=== PATIENT | female | born 1935 | race Caucasian/White ===

== ENCOUNTER 2016-09-17 09:51 | Inpatient (IN) | payer OTHER, BC ==
[~2016-09-17] VITALS: Ht 170.2 cm; Wt 83.9 kg
--- NOTE | ~2016-09-17 | D ---
[facility] [place] [address] DISCHARGE SUMMARY Name: KEYSHAWN FONTANA Room #: 418-P ADM IN M.R.#: [id number] Admission: 09/17/16 Attend Phys: David Bowie MD Discharge: Date of : 35 Report #: [id number] THIS REPORT FOR: //name// CC: Nhi Bowie DATE OF SERVICE: 09/21/2016 HISTORY OF PRESENT ILLNESS: The patient is an 81-year-old female who fell at home, and fracture of the left femoral neck. Please refer to the admission H and P for details. HOSPITALIZATION COURSE: The patient was hospitalized at [facility]. Orthopedic surgeon was consulted. The patient had surgery on 09/18/2016. The patient recovered well. Her postop course was uncomplicated. The patient had mild hypoglycemic episode while she was here. Amaryl dose was reduced to 2 mg in the morning, from 4 mg b.i.d. The patient's hospital stay was otherwise uneventful. The patient was seen and evaluated by physical therapist. nursing home home placement was recommended for the rehabilitation. The patient's condition currently is acceptable, as documented in the patient's chart. DISCHARGE DIAGNOSES: Left neck fracture, status post surgery on 09/18/2016. 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 DISCHARGE MEDICATIONS: Please refer to the medication reconciliation list. In brief, the patient is continued on outpatient medications, except the glimepiride dose is reduced to 2 mg in the morning, from 4 mg b.i.d. The patient is also continued on Allgood, that was started here for pain control. FOLLOWUP PLAN: 1. Follow up with the primary care physician in 1-2 weeks. 2. Follow up in orthopedic clinic in 2 weeks as advised[address] [address] DISCHARGE SUMMARY Name: KEYSHAWN FONTANA Room #: 418-P [facility] IN ..#: [id number] Admission: 09/17/16 Attend Phys: David Bowie MD Discharge: Date of : 35 Report #: [id number] I spent more than 30 minutes to coordinate the patient's discharge from the hospital. By: [id number] Teena Camp MD /nt
--- NOTE | ~2016-09-17 | HC ---
[facility] [place] [address] CONSULTATION Name: KEYSHAWN FONTANA Room #: 418-P ADM IN M.R.#: [id number] Admission: 09/17/16 Attend Phys: David Bowie MD Discharge: Date of : 35 Report #: [id number] THIS REPORT FOR: //name// CC: Nhi Bowie DICTATED BY: Fabrice PIERCE Currently, the patient is in room 418. REASON FOR CONSULT: Left hip fracture. The patient was seen by myself this afternoon. HISTORY OF PRESENT ILLNESS: The patient is an 81-year-old white female, who was brought to the emergency room by her daughter, who lives with her. The patient fell this morning in the back yard of her house while she was doing some gardening. In speaking with the patient, it sounds like she tumbled on a chair and was not able to regain her balance prior to falling. She denies syncope episode. Denies trauma to her head. The patient remembers a detailed falling and landing on her left side. Subsequently, the patient had pain and was unable to bear weight. The patient came into the emergency room rating pain 10/10. The patient had family at bedside when assessed. She was alert and oriented and was able to answer all my questions. The patient is a very independent 81-year-old who uses a cane to get around the house. ALLERGIES: No known allergies to medications. MEDICATIONS: Please see MAR. PERTINENT LABS: White blood cell 405, hemoglobin 12.6, platelet count of 314, PT 10.7, INR 1.0. Creatinine 1.6, BUN 33. PAST MEDICAL HISTORY: Include hyperlipidemia, diabetes type 2, hypothyroidism, hypertension, uterine cancer in 1998, skin cancer, kidney stones, cardiac stents placed in 2005, small bowel obstruction in 2013, mild CVA with no residual in 2012. SOCIAL HISTORY: The patient denies alcohol abuse, denies recreational drug abuse. Lives at home with her daughter. PERTINENT IMAGING: X-ray of the hip obtained in the emergency room, no acute fracture was seen or subluxation. A CT was then ordered for the hip, which revealed left subcapital femoral neck fracture with some mild anterior offset and triangulation of distal fracture. PHYSICAL EXAMINATION: Showed that she had equal leg length. Pain with leg roll of the left side only. Neurovascular intact in left lower extremity with +[address] [address] CONSULTATION Name: KEYSHAWN FONTANA Room #: 418-P [facility] IN [facility]#: [id number] Admission: 09/17/16 Attend Phys: David Bowie MD Discharge: Date of : 35 Report #: [id number] dorsal pedis and +2 posterior tibialis. No pain to palpation of the knee. No pain to palpation of the ankle. The skin was dry and intact. No ecchymosis noted. No range of motion of hip was assessed due to the fracture. She was tender to mild palpation of the hip anteriorly and lateral. Sensation was intact. IMPRESSION: Left femoral neck fracture. PLAN: The patient will be placed n.p.o. after midnight and the anticoagulant medication will be held. Consent is to be obtained tonight. Preop antibiotics were ordered Ancef 1 g. The left hip pinning is planned for tomorrow afternoon at [address] Tirso Bennett and assisted by me. Thank you for the consult. Please call us if you have questions. By: [id number] Teena Camp MD /nt
--- NOTE | ~2016-09-17 | EKG ---
[address] [address] ELECTROCARDIOGRAM REPORT Name: KEYSHAWN FONTANA Room #: 170-16 ADM IN .R.#: [id number] Admission: 09/17/16 Attend Phys: David Bowie MD Discharge: Date of : 35 Report #: [id number] THIS REPORT FOR: //name// [facility] ED Test Date: 2016-09-17 Test Time: 10:32:46 Pat Name: KEYSHAWN FONTANA Department: Room: [facility] Gender: F Web Design Instructor: adis : 1935 Requested By: Kvng Singleton Order Number: [id number] MD: Taz Singh Measurements Intervals [place] Rate: 89 P: -60 LA: 185 QRS: -59 QRSD: 144 T: 99 QT: 425 QTc: 518 Interpretive Statements Sinus rhythm Ventricular trigeminy RBBB and LAFB Electronically Signed On 09-17-2016 15:08:50 CDT by Taz Singh [email or web address] <ELECTRONICALLY SIGNED> By: Taz Singh MD 09/17/16 1508 31 103 Taz Singh MD /RICHAR
--- NOTE | ~2016-09-17 | O ---
[facility] [place] [address] OPERATIVE REPORT Name: MARIZOLKEYSHAWN C Room #: 418-P ADM IN M.R.#: [id number] Admission: 09/17/16 Attend Phys: David Bowie MD Discharge: Date of : 35 Report #: [id number] THIS REPORT FOR: //name// CC: Nhi Bowie DATE OF SERVICE: 09/18/2016 PREOPERATIVE DIAGNOSIS: Left hip femoral neck fracture. POSTOPERATIVE DIAGNOSIS: Left hip femoral neck fracture. PROCEDURE: Left hip pinning. SURGEON: Tirso Bennett MD. CIRCULATION MANAGER: Law Godoy, nurse practitioner. INDICATIONS FOR CIRCULATION MANAGER: During the course of operation, manipulation, retraction and limb positioning was required. This was afforded to me by my automotive parts counter assistant. ANESTHESIA: General. INDICATIONS: See hospital H and P. DESCRIPTION OF PROCEDURE: After adequate general anesthesia had been obtained, the patient was transferred on the fracture table. Left hip and lower extremity was prepped and draped in the usual meticulous sterile fashion. A small incision was made just distal to the greater trochanter laterally and subQ divided sharply. Hemostasis obtained with electrocautery. IT band was divided. The vastus lateralis was split longitudinally. Then, 3 guide pins were then placed through the drill guide, pinned to the femoral head from the lateral cortex. These were checked in 2 planes and found to be in good position. We then drilled the lateral cortex, measured and then placed 3 cannulated 7.3 mm screws over the guide pins. These were checked in 2 planes and found to be in good position. The wound was irrigated copiously. The fascia was reapproximated with a #1 Vicryl suture, subcutaneous closed with 2-0 Monocryl, skin closed with stacey. Sterile compressive dressing was applied. By: [id number] Tirso Bennett MD /nt
[~2016-09-17 09:51] MED LIST: AMARYL2 MG PO; BAYER CHEWABLE81 MG PO; CENTRUM SILVER1 EAC4 PO; COLACE100 MG PO; CRESTOR20 MG PO; GLUCOPHAGE1000 MG PO; HYDROCHLOROTHIA25 M2 PO; LAMISIL250 MG PO; LEVOTHYROXIN0.088 MG PO; METFORMIN HCL500 MG PO; METOPROLOL PO; NORCO 5-325 TA1 EACH PO; NORVASC10 MG PO; POTASSIUM20 PO; SENNA PO; TYLENOL325 MG PO
[2016-09-17 09:55] VITALS: BP 181/61
[2016-09-17 10:57] LABS: ABSOLUTE NEUTROPHILS 6.3 thou/uL (1.4-8.2); BASOPHILS 1.1 % (0.0-2.0); EOSINOPHILS 2.4 % (0.0-3.0); HEMATOCRIT 37.2 % (37.0-47.0); HEMOGLOBIN 12.6 gm/dL (12.0-15.0); LYMPHOCYTES 11.7 % (24.0-44.0); MCHC 33.8 g/dL (28.0-37.0); MCV 91.8 fL (80.0-100.0); MONOCYTES 4.2 % (1.0-8.0); PLATELET COUNT 314 thou/uL (150-400); POLYS 80.6 % (36.0-66.0); RBC 4.05 mil/uL (4.20-5.00); RDW 14.2 % (10.5-14.5); WBC 7.8 thou/uL (4.0-11.0)
[2016-09-17 10:58] LABS: MANUAL DIFF NO
[2016-09-17 11:04] LABS: CALCIUM 9.7 mg/dL (8.5-10.1); CREATININE 1.6 mg/dL (0.6-1.0); POTASSIUM 3.9 mmol/L (3.5-5.1)
[2016-09-17] MEDS ORDERED: GLUCOPHAGE XR500 M1 PO (11:47)
[2016-09-17] MEDS ORDERED: JANUVIA100 MG PO (11:48)
[2016-09-17] MEDS ORDERED: LIPITOR80 MG PO (11:49)
[2016-09-17] MEDS ORDERED: KLOR-CON 10 ER10 MEQ PO (11:50)
[2016-09-17] MEDS ORDERED: TOPROL XL25 MG PO (11:50)
[2016-09-17] MEDS ORDERED: TRAMADOL 50 MG50 MG PO (11:51)
[2016-09-17 15:00] VITALS: BP 162/53
[2016-09-17 15:41] VITALS: BP 158/67
[2016-09-17 20:26] LABS: PROTIME 10.7 Seconds (9.3-11.4)
[2016-09-17 20:37] VITALS: BP 166/53
[2016-09-18] VITALS (9 sets, daily range): BP systolic 111–191; BP diastolic 39–73
[2016-09-18 08:40] LABS: URINE BILIRUBIN NEGATIVE (Negative); URINE BLOOD 2+ (Negative); URINE COLOR YELLOW; URINE GLUCOSE-RANDOM* NEGATIVE (Negative); URINE KETONES NEGATIVE (Negative); URINE NITRITE NEGATIVE (Negative); URINE PROTEIN (DIPSTICK) 2+ (Negative); URINE SPECIFIC GRAVITY 1.025 (1.003-1.035); URINE UROBILINOGEN 0.2 E.U./dl (0.2-1.0)
[2016-09-18 08:46] LABS: HEMATOCRIT 34.1 % (37.0-47.0); HEMOGLOBIN 11.6 gm/dL (12.0-15.0); MCH 31.7 pg (26.0-34.0); MCV 93.1 fL (80.0-100.0); RBC 3.66 mil/uL (4.20-5.00); RDW 14.5 % (10.5-14.5); WBC 10.9 thou/uL (4.0-11.0)
[2016-09-18 08:54] LABS: CALCIUM 8.5 mg/dL (8.5-10.1); CREATININE 1.2 mg/dL (0.6-1.0); POTASSIUM 3.8 mmol/L (3.5-5.1)
[2016-09-18 08:54] LABS: CASTS None Seen /LPF (None Seen); CRYSTALS None Seen /LPF (None Seen); SQUAMOUS None Seen /LPF (0-3); URINE RBC 3-10 Few /HPF (0-2)
[2016-09-18 08:55] LABS: BACTERIA 1-9 Few /HPF (None Seen)
[2016-09-18 18:59] LABS: HEMOGLOBIN 10.2 gm/dL (12.0-15.0); MCH 31.6 pg (26.0-34.0); MCHC 34.1 g/dL (28.0-37.0); MCV 92.7 fL (80.0-100.0); RBC 3.24 mil/uL (4.20-5.00); RDW 14.6 % (10.5-14.5); WBC 11.7 thou/uL (4.0-11.0)
[2016-09-19 00:04] VITALS: BP 138/48
[2016-09-19 04:15] VITALS: BP 139/39
[2016-09-19 05:56] LABS: HEMATOCRIT 29.8 % (37.0-47.0); HEMOGLOBIN 10.4 gm/dL (12.0-15.0); MCHC 34.9 g/dL (28.0-37.0); MCV 91.8 fL (80.0-100.0); RBC 3.25 mil/uL (4.20-5.00); RDW 14.6 % (10.5-14.5); WBC 9.6 thou/uL (4.0-11.0)
[2016-09-19 06:02] LABS: CALCIUM 8.1 mg/dL (8.5-10.1); CREATININE 1.4 mg/dL (0.6-1.0); POTASSIUM 3.7 mmol/L (3.5-5.1)
[2016-09-19 07:03] VITALS: BP 167/42
[2016-09-19 15:27] VITALS: BP 162/57
[2016-09-19 20:00] VITALS: BP 177/47
[2016-09-19 20:35] LABS: URINE BILIRUBIN NEGATIVE (Negative); URINE BLOOD 2+ (Negative); URINE COLOR YELLOW; URINE GLUCOSE-RANDOM* 1+ (Negative); URINE KETONES NEGATIVE (Negative); URINE LEUKOCYTES-REFLEX 1+ (Negative); URINE PROTEIN (DIPSTICK) 2+ (Negative); URINE SPECIFIC GRAVITY 1.025 (1.003-1.035); URINE UROBILINOGEN 0.2 E.U./dl (0.2-1.0)
[2016-09-19 20:45] LABS: COARSE GRANULAR CASTS 4-10 Moderate /LPF (None Seen); SQUAMOUS 0-3 Few /LPF (0-3); URINE RBC >20 Many /HPF (0-2); URINE WBC-REFLEX >25 Many /HPF (0-5)
[2016-09-19 20:48] LABS: AMORPHOUS URATES Moderate /LPF (None Seen)
[2016-09-20] VITALS: BP 160/48
[2016-09-20 04:00] VITALS: BP 160/33
[2016-09-20 06:07] LABS: ABSOLUTE NEUTROPHILS 5.5 thou/uL (1.4-8.2); EOSINOPHILS 4.8 % (0.0-3.0); HEMATOCRIT 28.3 % (37.0-47.0); HEMOGLOBIN 9.7 gm/dL (12.0-15.0); LYMPHOCYTES 12.3 % (24.0-44.0); MCH 31.7 pg (26.0-34.0); MCHC 34.4 g/dL (28.0-37.0); MONOCYTES 5.1 % (1.0-8.0); PLATELET COUNT 230 thou/uL (150-400); POLYS 76.8 % (36.0-66.0); RBC 3.08 mil/uL (4.20-5.00); RDW 14.6 % (10.5-14.5); WBC 7.1 thou/uL (4.0-11.0)
[2016-09-20 06:11] LABS: MANUAL DIFF NO
[2016-09-20 06:18] LABS: CALCIUM 8.2 mg/dL (8.5-10.1); CREATININE 1.4 mg/dL (0.6-1.0); POTASSIUM 3.7 mmol/L (3.5-5.1)
[2016-09-20 07:13] VITALS: BP 151/43
[2016-09-20 15:49] VITALS: BP 162/52
[2016-09-20 20:00] VITALS: BP 172/57
[2016-09-21 04:55] VITALS: BP 141/51
[2016-09-21 08:37] VITALS: BP 158/44
[2016-09-21] MEDS ORDERED: HUMALOG100 UNIT/1 SUBQ (09:30)
[2016-09-21] MEDS ORDERED: CYCLOBENZAPRINE5 MG PO (09:30)
[2016-09-21] MEDS ORDERED: XARELTO10 MG PO (09:30)
[2016-09-21] MEDS ORDERED: HYDROCODONE-AP1 EAC6 PO (09:30)
[2016-09-21] MEDS ORDERED: TRAMADOL 50 MG50 MG PO (09:30)
[2016-09-21] MEDS ORDERED: AMARYL2 MG PO (09:30)
== END 2016-09-21 13:00 | DRG 480 ==
LOC: ER 09:51 → EROBS 13:42 → 4E 13:42
PROVIDERS: Family Medicine; Internal Medicine Endocrinology, Diabetes & Metabolism; Nurse Practitioner; Orthopaedic Surgery
PROC: 0QH734Z Insertion of Internal Fixation Device into Left Upper Femur, Percutaneous Approach (ICD-10-PCS; principal; 2016-09-18)
DX: S72.012A Unspecified intracapsular fracture of left femur, initial encounter for closed fracture (principal); J96.00 Acute respiratory failure, unspecified whether with hypoxia or hypercapnia; N17.9 Acute kidney failure, unspecified; K59.00 Constipation, unspecified; D64.9 Anemia, unspecified; E11.649 Type 2 diabetes mellitus with hypoglycemia without coma; E11.65 Type 2 diabetes mellitus with hyperglycemia; E11.22 Type 2 diabetes mellitus with diabetic chronic kidney disease; I12.9 Hypertensive chronic kidney disease with stage 1 through stage 4 chronic kidney disease, or unspecified chronic kidney disease; N18.3 Chronic kidney disease, stage 3 (moderate); I25.10 Atherosclerotic heart disease of native coronary artery without angina pectoris; E78.5 Hyperlipidemia, unspecified; E03.9 Hypothyroidism, unspecified; Z85.42 Personal history of malignant neoplasm of other parts of uterus; Z85.528 Personal history of other malignant neoplasm of kidney; Z87.442 Personal history of urinary calculi; Z95.5 Presence of coronary angioplasty implant and graft; Z86.73 Personal history of transient ischemic attack (TIA), and cerebral infarction without residual deficits; Z90.710 Acquired absence of both cervix and uterus; Z92.3 Personal history of irradiation; Z79.82 Long term (current) use of aspirin; Z79.899 Other long term (current) drug therapy; W18.39XA Other fall on same level, initial encounter; Y93.89 Activity, other specified; Y92.098 Other place in other non-institutional residence as the place of occurrence of the external cause; Y99.8 Other external cause status
CPT/HCPCS: 10183; 50010; 50101; 50386; 51412; 51538; 53400; 53404; 56525; 57092; 62110; 62900; 70005

== ENCOUNTER 2016-10-08 19:15 | Inpatient (IN) | payer OTHER, BC ==
[~2016-10-08] VITALS: Ht 170.2 cm; Wt 83.9 kg
--- NOTE | ~2016-10-08 | EKG ---
[place] [address] [facility] [facility] [place] [address] ELECTROCARDIOGRAM REPORT Name: KEYSHAWN FONTANA Room #: 423-1 ADM IN M.R.#: [id number] Admission: 10/08/16 Attend Phys: Sulma Manzanares Discharge: Date of : 35 Report #: [id number] THIS REPORT FOR: //name// [facility] ED Test Date: 2016-10-08 Test Time: 20:24:39 Pat Name: KEYSHAWN FONTANA Department: [facility] Gender: F Dredge Pipeman: BRODY : 1935 Requested By: Roebrto Arreguin Order Number: [id number] MD: Damon Salomon Measurements Intervals [place] Rate: 102 P: 246 SD: 163 QRS: -63 QRSD: 137 T: 103 QT: 369 QTc: 481 Interpretive Statements Sinus tachycardia RBBB and LAFB Compared to ECG 09/17/2016 10:32:46 Ventricular premature complex(es) no longer present Electronically Signed On 10-09-2016 8:53:00 CDT by Damon Salomon [email or web address] <ELECTRONICALLY SIGNED> By: Damon Salomon MD, [facility] 10/09/16 0853 23 23 Damon Salomon MD, [facility] /EPI
--- NOTE | ~2016-10-08 | EKG ---
[place] [address] [address] [place] [address] ELECTROCARDIOGRAM REPORT Name: KEYSHAWN FONTANA Room #: 423-1 ADM IN M.R.#: [id number] Admission: 10/08/16 Attend Phys: Sulma Manzanares Discharge: Date of : 35 Report #: [id number] THIS REPORT FOR: //name// [facility] Test Date: 2016-10-09 Test Time: 08:33:41 Pat Name: KEYSHAWN FONTANA Department: Room: [facility] Gender: F Health Inspector: alisa : 1935 Requested By: Sulma Manzanares Order Number: [id number] MD: Damon Salomon Measurements Intervals [place] Rate: 133 P: [place]: QRS: -77 QRSD: 150 T: 103 QT: 359 QTc: 535 Interpretive Statements Atrial fibrillation RBBB and LAFB Compared to ECG 09/17/2016 10:32:46 Atrial fibrillation has replaced sinus tachycardia Electronically Signed On 10-09-2016 9:04:24 CDT by Damon Salomon [email or web address] <ELECTRONICALLY SIGNED> By: Damon Salomon MD, [facility] 06/10/21 903 2 2 Damon Salomon MD, [facility] /EPI
--- NOTE | ~2016-10-08 | HC ---
[facility] [place] [address] CONSULTATION Name: KEYSHAWN FONTANA Room #: 247-P [facility] IN .R.#: [id number] Admission: 10/08/16 Attend Phys: Sulma Manzanares Discharge: 10/10/16 Date of : 35 Report #: [id number] THIS REPORT FOR: //name// CC: Sulma Elise DATE OF SERVICE: 10/10/2016 DATE OF SERVICE: 10/10/2016. PERSONAL PHYSICIAN: Dr. Manzanares. CHIEF COMPLAINT: Left heel deep tissue injury. HISTORY OF PRESENT ILLNESS: This is an 81-year-old white female who was evaluated for the wound care nurses yesterday and found to have a deep tissue injury in her left heel, which is the same extremity that had she had a left hip surgery 3 weeks ago. It appears that the patient came in with be a deep tissue injury to her left heel and was also noted to have a small stage I decubitus ulcer in her sacrococcygeal region. I have been asked to assist in the care of this at this time, the patient herself appears to be have altered mental status exam, was unable answer any questions or give any history. She is only moaning with movement of her legs. PAST MEDICAL HISTORY: Significant for type 2 diabetes, hyperlipidemia, hypothyroidism, hypertension, uterine cancer, hysterectomy and radiation, coronary artery disease with stent placement in 2005. CURRENT MEDICATIONS: Multiple, I reviewed the patient's medication list. DRUG ALLERGIES: None. SOCIAL HISTORY: The patient recently was in a rehabilitation facility per old records. REVIEW OF SYSTEMS: Unobtainable because of the patient obtunded state, because of patient's altered mental status. PHYSICAL EXAMINATION: VITAL SIGNS: T-max 36.6, rest of the vital signs stable. GENERAL: This is a moaning, white female who will open her eyes on command, but does not answer any questions. HEENT: Normocephalic, atraumatic. Mucous membranes are dry. Pupils are round. Sclerae white. NECK: Without JVD or masses. BACK: Nontender. [facility] [address] [place] [address] CONSULTATION Name: KEYSHAWN FONTANA Room #: 247-P [facility] IN M.R.#: [id number] Admission: 10/08/16 Attend Phys: Sulma Manzanares Discharge: 10/10/16 Date of : 35 Report #: [id number] LUNGS: Slightly diminished breath sounds heard throughout. CHEST: Nontender. HEART: Regular with 2/6 systolic ejection murmur. ABDOMEN: Soft, obese, nontender, without open ulcerations. EXTREMITIES: Left hip has surgical stacey in place which appears to be a clean, dry and Left heel which has no actual drainage at this time, there is no odor but does appear to be tender because patient moans when I apply pressure to the heel. There are no signs of any cellulitis, there is no increased warmth. Distal pulses are 2+ dorsalis pedis, 1+ posterior tibial, rest of the foot is intact right lower extremity reveals no signs of ulcerations. There is no tenderness noted at the heel, there was no bogginess to the right heel. The rest of the foot or toes are intact. NEUROLOGIC: The patient once again only moans of pain but will open her eyes, when I asked her name, but does not answer any questions. LABORATORY DATA: White cell count 9.7, hemoglobin 9.4, albumin is , markedly low at 1.8. IMPRESSION: 1. Left heel deep tissue injury, present on admission. 2. Stage I decubitus ulcer, left or sacrococcygeal region. 3. Severe protein calorie malnutrition with albumin 1.8. 4. Recent left hip surgery. 5. Altered mental status. PLAN: At this time, we will start Betadine to the left heel, cover this with a foam and have heel protection on it at all times. We will order for the right lower extremity as well given the fact the patient appears to be fairly immobile. We will order a low air loss mattress, also to prevent any further breakdown of the sacrococcygeal ulcer; however, given her significant immobility and severe protein calorie malnutrition with almost expected further deterioration of the sacrococcygeal region despite even the best medical care. Also make sure we try to maximize the patient's oral supplementation of protein for healing. We will continue to follow the patient. <ELECTRONICALLY SIGNED> By: Deonte Peralta MD 10/30/16 1728 [id number] Deonte Peralta MD /nt
[~2016-10-08 19:15] MED LIST changes: +CYCLOBENZAPRINE5 MG PO; +GLUCOPHAGE XR500 M1 PO; +HUMALOG100 UNIT/1 SUBQ; +HYDROCODONE-AP1 EAC6 PO; +JANUVIA100 MG PO; +KLOR-CON 10 ER10 MEQ PO; +LIPITOR80 MG PO; +TOPROL XL25 MG PO; +TRAMADOL 50 MG50 MG PO; +XARELTO10 MG PO
[2016-10-08 19:16] VITALS: BP 131/43
[2016-10-08] MEDS ORDERED: HUMALOG100 UNIT/1 SUBQ (19:57)
[2016-10-08] MEDS ORDERED: SENOKOT-S1 TA1 PO (19:58)
[2016-10-08] MEDS ORDERED: METFORMIN HCL500 MG PO (19:58)
[2016-10-08] MEDS ORDERED: OXYCONTIN10 M1 PO ×2 (19:59→20:00)
[2016-10-08] MEDS ORDERED: ACIDOPHILUS1 EAC4 PO (20:00)
[2016-10-08] MEDS ORDERED: FLAGYL500 MG PO (20:00)
[2016-10-08] MEDS ORDERED: CIPRO250 M1 PO (20:01)
[2016-10-08 20:28] LABS: URINE BILIRUBIN NEGATIVE (Negative); URINE BLOOD 1+ (Negative); URINE COLOR YELLOW; URINE GLUCOSE-RANDOM* NEGATIVE (Negative); URINE KETONES NEGATIVE (Negative); URINE NITRITE NEGATIVE (Negative); URINE PROTEIN (DIPSTICK) 1+ (Negative); URINE SPECIFIC GRAVITY 1.025 (1.003-1.035); URINE UROBILINOGEN 0.2 E.U./dl (0.2-1.0)
[2016-10-08 20:38] LABS: BACTERIA >30 Many /HPF (None Seen); CASTS None Seen /LPF (None Seen); CRYSTALS None Seen /LPF (None Seen); SQUAMOUS 0-3 Few /LPF (0-3); URINE RBC 3-10 Few /HPF (0-2); URINE WBC >25 Many /HPF (0-5)
[2016-10-08 20:40] LABS: ABG SAMPLE TYPE ARTERIAL; BE(vivo) -9.1 mmol/L (-2 to +3); HCO3 15.8 mmol/L (22.0-26.0); LACTATE 2.37 mmol/L (0.5-2.0); O2(CT) 13.5 mL/dL (15.0-23.0); O2Hb 95.1 % (92.0-98.0); PCO2 30.5 mmHg (35.0-45.0); PO2 82.9 mmHg (80.0-100.0); pH 7.331 (7.360-7.450); sO2 95.7 % (92.0-98.0); tCO2 16.7 mmol/L (24.0-30.0)
[2016-10-08 20:41] LABS: ABG COMMENT NO COMPLICATIONS.; STICK SITE R.BRACHIAL
[2016-10-08 22:40] LABS: HEMATOCRIT 28.4 % (37.0-47.0); HEMOGLOBIN 9.4 gm/dL (12.0-15.0); MCH 30.9 pg (26.0-34.0); MCHC 33.2 g/dL (28.0-37.0); MCV 93.2 fL (80.0-100.0); PLATELET COUNT 577 thou/uL (150-400); RBC 3.05 mil/uL (4.20-5.00); RDW 14.3 % (10.5-14.5); WBC 18.7 thou/uL (4.0-11.0)
[2016-10-08 22:45] LABS: MANUAL DIFF YES
[2016-10-08 22:52] LABS: INR 1.3; PROTIME 13.2 Seconds (9.3-11.4)
[2016-10-08 22:56] LABS: CALCIUM 9.5 mg/dL (8.5-10.1); CREATININE 2.6 mg/dL (0.6-1.0); POTASSIUM 5.2 mmol/L (3.5-5.1)
[2016-10-08 23:31] LABS: TOTAL CELL COUNT 100
[2016-10-09 00:13] VITALS: BP 96/42
[2016-10-09 04:40] LABS: HEMATOCRIT 27.2 % (37.0-47.0); HEMOGLOBIN 9.4 gm/dL (12.0-15.0); MCHC 34.3 g/dL (28.0-37.0); MCV 93.1 fL (80.0-100.0); RBC 2.92 mil/uL (4.20-5.00); RDW 14.5 % (10.5-14.5); WBC 9.7 thou/uL (4.0-11.0)
[2016-10-09 04:52] LABS: CALCIUM 8.8 mg/dL (8.5-10.1); CREATININE 2.6 mg/dL (0.6-1.0); POTASSIUM 5.1 mmol/L (3.5-5.1)
[2016-10-09 05:00] VITALS: BP 81/51
[2016-10-09 07:28] VITALS: BP 90/39
[2016-10-09 07:49] VITALS: BP 91/43
[2016-10-09 09:08] VITALS: BP 106/49
[2016-10-09 20:00] VITALS: BP 115/51
[2016-10-10 05:08] VITALS: BP 106/39
[2016-10-10 05:22] LABS: ALBUMIN 1.8 g/dL (3.4-5.0); CALCIUM 8.7 mg/dL (8.5-10.1); CREATININE 2.7 mg/dL (0.6-1.0); PHOSPHORUS 5.2 mg/dL (2.5-4.9); POTASSIUM 5.7 mmol/L (3.5-5.1)
[2016-10-10 07:51] VITALS: BP 130/64
[2016-10-10 11:31] VITALS: BP 115/75
[2016-10-10 12:00] VITALS: BP 109/39
[2016-10-10 12:28] LABS: ABG SAMPLE TYPE ARTERIAL; BE(vivo) -13.2 mmol/L (-2 to +3); HCO3 13.8 mmol/L (22.0-26.0); LACTATE 11.06 mmol/L (0.5-2.0); O2(CT) 11.9 mL/dL (15.0-23.0); O2Hb 89.7 % (92.0-98.0); PCO2 36.2 mmHg (35.0-45.0); PO2 71.8 mmHg (80.0-100.0); STICK SITE R.BRACHIAL; tCO2 14.9 mmol/L (24.0-30.0)
== END 2016-10-10 12:43 | DRG 871 ==
LOC: ER 19:15 → EROBS 22:53 → 4E 22:53 → ICU 10-10 12:38
PROVIDERS: Emergency Medicine; Hospitalist
DX: A41.9 Sepsis, unspecified organism (principal); G92 Toxic encephalopathy; E43 Unspecified severe protein-calorie malnutrition; R65.21 Severe sepsis with septic shock; N39.0 Urinary tract infection, site not specified; N17.9 Acute kidney failure, unspecified; A04.7 Enterocolitis due to Clostridium difficile; E78.5 Hyperlipidemia, unspecified; E03.9 Hypothyroidism, unspecified; I25.10 Atherosclerotic heart disease of native coronary artery without angina pectoris; S99.822A Other specified injuries of left foot, initial encounter; L89.151 Pressure ulcer of sacral region, stage 1; Z68.29 Body mass index [BMI] 29.0-29.9, adult; K59.00 Constipation, unspecified; N18.3 Chronic kidney disease, stage 3 (moderate); I12.9 Hypertensive chronic kidney disease with stage 1 through stage 4 chronic kidney disease, or unspecified chronic kidney disease; E11.22 Type 2 diabetes mellitus with diabetic chronic kidney disease; Z85.42 Personal history of malignant neoplasm of other parts of uterus; Z90.710 Acquired absence of both cervix and uterus; Z92.3 Personal history of irradiation; Z87.442 Personal history of urinary calculi; Z95.5 Presence of coronary angioplasty implant and graft; Z86.73 Personal history of transient ischemic attack (TIA), and cerebral infarction without residual deficits; Z79.899 Other long term (current) drug therapy
CPT/HCPCS: 10183